=== PATIENT | female | born 2000 | race Caucasian/White ===

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

== ENCOUNTER 2019-07-30 06:51 | Inpatient (IN) | payer OTHER ==
[2019-07-30] MEDS ORDERED: OXYTOCIN/NORMAL SALINE 20 UNIT/1,000 ML RTUINJ IV PRN ×2 (07:14→16:51)
[2019-07-30] MEDS ORDERED: RINGERS SOLUTION,LACTATED 300 ML IV ONE (07:14)
[2019-07-30] MEDS ORDERED: RINGERS SOLUTION,LACTATED 1,000 ML IV PRN (07:14)
[2019-07-30] MEDS ORDERED: OXYTOCIN/NORMAL SALINE 20 UNIT/1,000 ML RTUINJ ONE ×2 (07:23→17:37)
[2019-07-30] MEDS ORDERED: MISOPROSTOL 0.2 MG TABLET ONE (07:23)
[2019-07-30] MEDS ORDERED: LIDOCAINE 1% INJ-PF (10 MG/ML) 30 ML SDV ONE (07:23)
[2019-07-30] MEDS ORDERED: OXYTOCIN 10 UNIT/ML VIAL ONE (07:23)
[2019-07-30 07:42] LABS: APPEARANCE,URINE CLOUDY; BILIRUBIN,URINE NEGATIVE (NEGATIVE); COLOR,URINE YELLOW; GLUCOSE, URINE NEGATIVE (NEGATIVE); KETONES,URINE NEGATIVE (NEGATIVE); LEUKOCYTE ESTERASE,URINE LARGE (NEGATIVE); NITRITE,URINE NEGATIVE (NEGATIVE); PROTEIN,URINE 30 mg/dL (NEGATIVE); URINE SPECIFIC GRAVITY 1.026; UROBILINOGEN,URINE NEGATIVE mg/dL (<2.0)
[2019-07-30 08:02] LABS: URINE AMPHETAMINES SCREEN NEGATIVE; URINE BARBITURATES SCREEN NEGATIVE; URINE BENZODIAZEPINES SCREEN NEGATIVE; URINE COCAINE SCREEN NEGATIVE; URINE MARIJUANA (THC) SCREEN NEGATIVE; URINE METHADONE SCREEN NEGATIVE; URINE PHENCYCLIDINE SCREEN NEGATIVE
[2019-07-30 08:26] LABS: ABSOLUTE EOSINOPHILS # (AUTO) 0.1 10^3/uL (0.0-0.6); ABSOLUTE LYMPHOCYTES (AUTO) 1.7 10^3/uL (0.5-4.7); ABSOLUTE MONOCYTES (AUTO) 0.6 10^3/uL (0.1-1.4); ABSOLUTE NEUT (AUTO) 6.9 10^3/uL (1.7-8.2); BASOPHILS % (AUTO) 0.4 % (0-2); HEMATOCRIT 34.1 % (36.0-47.0); HEMOGLOBIN 11.9 g/dL (12.0-15.5); LYMPHOCYTES % (AUTO) 18.1 % (13-45); MEAN CORPUSCULAR HEMOGLOBIN 27.5 pg (27.0-33.4); MEAN CORPUSCULAR HGB CONC 34.9 g/dL (32.0-36.0); MEAN CORPUSCULAR VOLUME 79 fl (80-97); MONOCYTES % (AUTO) 6.4 % (3-13); PLATELET COUNT 212 10^3/uL (150-450); RED BLOOD COUNT 4.33 10^6/uL (3.72-5.28); RED CELL DISTRIBUTION WIDTH 13.1 % (11.5-14.0); SEGMENTED NEUTROPHILS % (AUTO) 74.1 % (42-78); TOTAL CELLS COUNTED % (AUTO) 100 %; WHITE BLOOD COUNT 9.2 10^3/uL (4.0-10.5)
[2019-07-30] MEDS ORDERED: LIDOCAINE 2% INJ (20 MG/ML) 20 ML MDV ONE (08:47)
[2019-07-30] MEDS ORDERED: ONDANSETRON HCL INJ/PF 4 MG/2 ML SDV ONE (09:59)
[2019-07-30] MEDS ORDERED: ONDANSETRON HCL INJ/PF 4 MG/2 ML SDV IV ONE (11:37)
[2019-07-30] MEDS ORDERED: PROMETHAZINE HCL INJ 25 MG/1 ML VIAL IV ONE (11:52)
[2019-07-30] MEDS ORDERED: PROMETHAZINE HCL INJ 25 MG/1 ML VIAL ONE (11:55)
[2019-07-30] MEDS ORDERED: NALBUPHINE HCL INJ 10 MG/1 ML AMPULE ONE (13:06)
[2019-07-30] MEDS ORDERED: NALBUPHINE HCL INJ 10 MG/1 ML AMPULE IV ONE (13:06)
--- NOTE | 2019-07-30 14:49 | Admission Physical ---
Datetime Report Generated by CPN: 07/30/2019 14:49 CURRENT ADMISSION Chief Complaint: Scheduled Induction of Labor Indication for Induction- Other: possible GDM Admit Impression : Term, Intrauterine ; No Active Labor Admit Plan: Initiate Labor Induction Protocol ALLERGIES Medication Allergies: No Medication Allergies: No Known Allergies (06/19/2018) Latex: No Latex Allergies Food Allergies: none Environmental Allergies: none OBSTETRICAL HISTORY EDC: 07/27/2019 00:00 : 1 Para: 0 Term: 0 : 0 SAB: 0 IAB: 0 Ectopic: 0 Livin Cesareans: 0 VBACs: 0 Multiple Births: 0 Gestational Diabetes: No Rh Sensitization: No Incompetent Cervix: No BERE: No Infertility: No ART Treatment: No Uterine Anomaly: No IUGR: No Hx Previous C/S: No Macrosomia: No Hx Loss/Stillborn: No PIH: No Hx : No Placenta Previa/Abruption: No Depression/PP Depression: No PTL/PROM: No Post Hemorrhage: No Current Procedures: Ultrasound; NST Obstetrical History Comments: G1: current SEE RECORDS Alcohol: No Marijuana : No Cocaine: No Other Illicit Drugs: No Cigarettes: Never Smoker. [id number] MEDICAL HISTORY Diabetes: No Blood Transfusion: No Pulmonary Disease (Asthma, TB): No Breast Disease: No Hypertension: No Dental Scheduler Surgery: No Heart Disease: No Hosp/Surgery: Yes Autoimmune Disorder: No Anesthetic Complications: No Kidney Disease: No Abnormal Pap Smear: No Neuro/Epilepsy: No Psychiatric Disorders: No Other Medical Diseases: No Hepatitis/Liver Disease: No Significant Family History: No Varicosities/Phlebitis: No Trauma/Violence : No Thyroid Dysfunction: No Medical History Comments: tonsilectomy 2016 INFECTIOUS HISTORY Gonorrhea: No Genital Herpes: No Chlamydia: No Tuberculosis: No Syphilis: No Hepatitis: No HIV/AIDS Exposure: No Rash or Viral Illness: No HPV: No PHYSICAL EXAM General: Normal HEENT: Normal Neurologic: Normal Thyroid: Deferred Heart: Normal Lungs: Normal Breast: Deferred Back: Normal Abdomen: Normal Genitourinary Exam: Normal Extremities: Normal DTRs: Deferred Pelvic Type: Adequate Vital Signs: Reviewed; Within Normal Limits VAGINAL EXAM Dilatation: 3 Effacement: 80 Station: -1 Contraction Comments: rare MEMBRANES Membranes: Intact FETUS A EGA: 40.3 Monitoring: External US FHR- Baseline: 120 Variability: Moderate 6-25bpm Decelerations: None FHR Category: Category I Estimated Weight (gm): 3300 Presentation: Vertex Admit Comment: at 40 weeks, failed 1h gtt (161), vomited 3h gtt twice has been monitoring bs-possible GDM. here for IOL. P: pitocin IOL, anticipate PLANS FOR LABOR AND DELIVERY Other Pain Management Plans: undecided at this time Feeding Preference: Breast Benefit of Breast Feed Discussed: Yes Circumcision: N/A INFORMED CONSENT Assignment: Sharri Akers MD Signature: with User ID: [email or web address] : with User ID: [email or web address]
[2019-07-30] MEDS ORDERED: FENTANYL/BUPIVACAINE/NS/PF 300 MCG/150 ML RTUINJ EPI ONE (15:13)
[2019-07-30] MEDS ORDERED: DIBUCAINE 1% OINTMENT 56 GM TP PRN (16:51)
[2019-07-30] MEDS ORDERED: PROMETHAZINE HCL INJ 25 MG/1 ML VIAL IV PRN (16:51)
[2019-07-30] MEDS ORDERED: MEASLES,MUMPS&RUBELLA VACC/PF 0.5 ML VIAL SUBCUT PRN (16:51)
[2019-07-30] MEDS ORDERED: PROMETHAZINE HCL 25 MG TABLET PO PRN (16:51)
[2019-07-30] MEDS ORDERED: ACETAMINOPHEN WITH CODEINE #3 TABLET PO PRN ×2 (16:51)
[2019-07-30] MEDS ORDERED: DIPHENHYDRAMINE HCL 25 MG CAPSULE PO PRN (16:51)
[2019-07-30] MEDS ORDERED: GLYCERIN/WITCH HAZEL LEAF 1 EACH MED..WIPE TP PRN (16:51)
[2019-07-30] MEDS ORDERED: PSEUDOEPHEDRINE HCL 30 MG TABLET PO PRN (16:51)
[2019-07-30] MEDS ORDERED: PROMETHAZINE HCL 25 MG SUPP.RECT PR PRN (16:51)
[2019-07-30] MEDS ORDERED: BENZOCAINE/MENTHOL AEROSOL SPRAY 56 ML TOP PRN (16:51)
[2019-07-30] MEDS ORDERED: NA PHOS,M-B/NA PHOS,DI-BA (ADULT) 133 ML ENEMA PR PRN (16:51)
[2019-07-30] MEDS ORDERED: ZOLPIDEM TARTRATE 5 MG TABLET PO PRN (16:51)
[2019-07-30] MEDS ORDERED: DIPH/PERTUSS(ACELL)/TETANUS VAC/PF 0.5 ML SYR (>=10YO) IM PRN (16:51)
[2019-07-30] MEDS ORDERED: MAGNESIUM HYDROXIDE SUSP 30 ML UDCUP PO PRN (16:51)
[2019-07-30] MEDS ORDERED: IBUPROFEN 800 MG TABLET PO SCH (18:00)
--- NOTE | 2019-07-30 18:46 | Delivery Summary ---
Del Sum A-C Datetime Report Generated by CPN: 07/30/2019 18:46 DELIVERY PERSONNEL DELIVERY PERSONNEL: [id number] Delivery Doctor:: Lesvia Ahumada CNM Nursery Nurse:: Nina Mortensen RN Buttonhole Marker/[employer]ILERMAKER [employer]SEM[employer]Y AND ERECTION: Eleni West, AGENCY SALES DEVELOPMENT ASSOCIATE MATERNAL INFORMATION Delivery Anesthesia: Local Medications During Delivery: Lidocaine 1% vaginal Medications After Delivery: Pitocin Drip 20 Units/1000ml NSS Estimated Blood Loss (ml): 150 Maternal Complications: None Provider Comments: SHEBA VIABLE FEMALE WITH SPONTANEOUS CRY. RIGHT NUCHAL HAND NOTED. CORD DOUBLE CLAMPED AND CUT. SPONTANEOUS INTACT PLACENTA WITH 3VC. MOTHER AND INFANT STABLE IN L_D #3. LABOR SUMMARY EDC: 07/27/2019 00:00 No. Babies in Womb: 1 Attempted: No Labor Anesthesia: IV Sedation LABOR INFORMATION Reason for Induction: Other Reason for Induction- Other: Elective Onset of Labor: 07/30/2019 09:41 Complete Dilatation: 07/30/2019 15:45 Oxytocin: Induction Group B Beta Strep: negative Antibiotics # of Doses: 0 Steroids Given: None Reason Steroids Not Administered: Not Applicable MEMBRANES Membranes Rupture Method: Spontaneous Rupture of Membranes: 07/30/2019 10:15 Length of Rupture (hr): 6.12 Amniotic Fluid Color: Clear Amniotic Fluid Amount: Small Amniotic Fluid Odor: None STAGES OF LABOR Stage 1 hr: 6 Stage 1 min: 4 Stage 2 hr: 0 Stage 2 min: 37 Stage 3 hr: 0 Stage 3 min: 5 Total Time in Labor hr: 6 Total Time in Labor min: 46 VAGINAL DELIVERY Episiotomy: None Laceration #1: None Laceration Extension #1: N/A Laceration Repair: Not Applicable Sponge Count Correct: N/A BABY A INFORMATION Delivery Date/Time: 07/30/2019 16:22 Method of Delivery: Vaginal Born in Route : No : N/A Forceps: N/A Vacuum Extraction: N/A PRESENTATION/POSITION BABY A Presentation: Cephalic Cephalic Presentation: Vertex Vertex Position: Right Occipital Anterior Breech Presentation: N/A PLACENTA INFORMATION BABY A Placenta Delivery Time : 07/30/2019 16:27 Placenta Method of Delivery: Spontaneous Placenta Status: Delivered SCORES BABY A Heart Rate 1 min: >100 bpm Resp Effort 1 min: Slow, Irregular Reflex Irritability 1 min: Cough or Sneeze or Pulls Away Muscle Tone 1 min: Some Flexion of Extremities Color 1 min: Body [place], Extremities Blue Resuscitation Effort 1 min: Tactile Stimulation SCORE 1 MIN: 7 Heart Rate 5 min: >100 bpm Resp Effort 5 min: [place] Reflex Irritability 5 min: Cough or Sneeze or Pulls Away Muscle Tone 5 min: Active Motion Color 5 min: Body [place], Extremities Blue Resuscitation Effort 5 min: Tactile Stimulation SCORE 5 MIN: 9 INFANT INFORMATION BABY A Gestational Age at Delivery: 40.3 Gestational Status: Full Term- 39- 40.6 Weeks Infant Outcome : Liveborn Infant Condition : Stable Sex: Female IDENTIFICATION BABY A Infant Verification Date/Time: 07/30/2019 16:22 ID Band Number: [id number] Mother's Name Verified: Yes RN Verifying Infant: Michelle Paul RN Additional Verifying Personnel: M. Coronado, RN WEIGHT/LENGTH BABY A Birthweight (gm): 3550 Infant Weight (lb): 7 Infant Weight (oz): 13 Infant Length (in): 20.00 Length (cm): 50.80 CORD INFORMATION BABY A No. Cord Vessels: 3 Nuchal Cord : N/A Nuchal Cord- Other: right nuchal hand Cord pH Baby Arterial: right nuchal hand Cord Blood Taken: Yes-For Storage (Mom's Blood type +) Suction: None ASSESSMENT BABY A Infant Complications: Other Infant Complications- Other: right nuchal cord Skin to Skin: Yes SIGNATURES Assignment: Sharri Akers MD Signature: with User ID: [email or web address] : with User ID: [email or web address] : I was personally available for consultation and serving as supervising physician for the P.
[2019-07-30] MEDS: FAMOTIDINE 20 MG TABLET PO SCH (21:20)
[2019-07-30] MEDS: IBUPROFEN 800 MG TABLET PO SCH (21:20)
[2019-07-31] MEDS: IBUPROFEN 800 MG TABLET PO SCH ×3 (06:45→21:57)
[2019-07-31 06:55] LABS: HEMATOCRIT 28.5 % (36.0-47.0); HEMOGLOBIN 9.9 g/dL (12.0-15.5); MEAN CORPUSCULAR HEMOGLOBIN 27.7 pg (27.0-33.4); MEAN CORPUSCULAR HGB CONC 34.6 g/dL (32.0-36.0); MEAN CORPUSCULAR VOLUME 80 fl (80-97); PLATELET COUNT 199 10^3/uL (150-450); RED BLOOD COUNT 3.56 10^6/uL (3.72-5.28); RED CELL DISTRIBUTION WIDTH 13.3 % (11.5-14.0); WHITE BLOOD COUNT 14.3 10^3/uL (4.0-10.5)
[2019-07-31] MEDS: DOCUSATE SODIUM 100 MG CAPSULE PO SCH ×3 (08:42→18:34)
[2019-07-31] MEDS: FERROUS SULFATE 325 MG TABLET PO SCH ×3 (08:42→18:34)
[2019-07-31] MEDS: PRENATAL VITAMIN W DHA CAPSULE PO SCH (11:02)
[2019-07-31] MEDS: SENNOSIDES/DOCUSATE 8.6-50 MG 1 EACH TABLET PO SCH (11:02)
--- NOTE | 2019-07-31 11:13 | PDOC PROGRESS REPORT ---
Subjective-OB Progress Note for:: 07/31/19 Subjective: 18yo G1 now P1 s/p ppd1. Pt. ambulating, voiding and without difficulty. Pain well controlled by medication,bonding well with baby. No concerns today Physical Exam (OB) Vital Signs: Temp Pulse Resp BP Pulse Ox 97.9 F 85 14 125/65 99 07/31/19 07:45 07/31/19 07:45 07/31/19 07:45 07/31/19 07:45 07/31/19 07:45 Intake & Output 07/30/19 07/31/19 08/01/19 06:59 06:59 06:59 Weight 108.8 kg - General General Appearance: Appears well In distress: None - PIH/Pre-Eclampsia Headache: Absent Epigastric Pain: No Visual Changes: No - Episiotomy/Laceration Site Condition: N/A - Lochia Lochia Amount: Small 10-25 ml Lochia Color: Rubra/Red - Abdomen Description: Soft, Round Fundal Description: Firm, Midline Fundal Height: u/u - u/2 - Respiratory Respiratory Status: No respiratory distress - Extremities Upper extremity: Normal inspection Lower extremities: Normal inspection - Neurological Cognition: Normal Orientation: AAOx4 - Psychological Associated symptoms: Normal affect, Normal mood Objective-Diagnostic Laboratory: 07/31/19 06:15 07/31/19 06:15 WBC 14.3 H RBC 3.56 L Hgb 9.9 L Hct 28.5 L MCV 80 MCH 27.7 MCHC 34.6 RDW 13.3 Plt Count 199 Assessment and Plan(PN) - Assessment and Plan (1) Encounter for induction of labor Is this a current diagnosis for this admission?: Yes Plan: delivered (2) Acute blood loss anemia Is this a current diagnosis for this admission?: Yes Plan: increase dietary iron and FeSO4 BID fasting glucose at pp visit (3) Gestational diabetes mellitus (GDM) affecting first Is this a current diagnosis for this admission?: Yes Plan: fasting glucose at pp visit (4) Delivery normal Is this a current diagnosis for this admission?: Yes Plan: routine pp care - Time Spent with Patient Time with patient: Less than 15 minutes Medications reviewed and adjusted accordingly: Yes - Disposition Anticipated Discharge: Home Within: within 24 hours
[2019-07-31] MEDS: FAMOTIDINE 20 MG TABLET PO SCH ×2 (15:12→21:52)
[2019-08-01] MEDS: IBUPROFEN 800 MG TABLET PO SCH ×2 (06:04→13:34)
--- NOTE | 2019-08-01 09:37 | PDOC PROGRESS REPORT ---
Subjective-OB Progress Note for:: 08/01/19 Subjective: Ready to go home. Physical Exam (OB) Vital Signs: Temp Pulse Resp BP Pulse Ox 97.8 F 74 16 122/62 100 08/01/19 07:34 08/01/19 07:34 08/01/19 07:34 08/01/19 07:34 08/01/19 07:34 Intake & Output 07/31/19 08/01/19 08/02/19 06:59 06:59 06:59 Weight 108.8 kg - PIH/Pre-Eclampsia Clonus: Negative Headache: Absent Epigastric Pain: No Visual Changes: No - Lochia Lochia Amount: Scant < 10 ml Lochia Color: Rubra/Red - Abdomen Description: Soft Hernia Present: No Bowel Sounds: Normoactive Flatus Presence: Present Stool: No Fundal Description: Firm Fundal Height: u/u - u/2 Objective-Diagnostic Laboratory: 07/31/19 06:15 Assessment and Plan(PN) - Time Spent with Patient Medications reviewed and adjusted accordingly: Yes - Disposition Anticipated Discharge: Home
--- NOTE | 2019-08-01 09:45 | PDOC DISCHARGE SUMMARY ---
Impression - Admit/DC Date/PCP Admission Date/Primary Care Provider: 07/30/19 06:51 DAX MCCOY MD Discharge Date: 08/01/19 - Discharge Diagnosis (1) Acute blood loss anemia Is this a current diagnosis for this admission?: Yes (2) Delivery normal Is this a current diagnosis for this admission?: Yes (3) Encounter for induction of labor Is this a current diagnosis for this admission?: Yes (4) Gestational diabetes mellitus (GDM) affecting first Is this a current diagnosis for this admission?: Yes - Additional Information Resuscitation Status: Full Code Discharge Diet: Regular Discharge Activity: Activity As Tolerated, Balance Activity w/Rest, Pelvic Rest, Slowly Increase Activity, No tub bath Referrals: DAX MCCOY MD [Primary Care Provider] - Prescriptions: Ferrous Sulfate [Feosol 325 mg Tablet] 325 mg PO BID #60 tablet Home Medications: Vits96/Iron Fum/Folic [ Tablet] 1 tab PO DAILY 07/30/19 Ferrous Sulfate [Feosol 325 mg Tablet] 325 mg PO BID #60 tablet 08/01/19 HPI Gestational Age: 40.3 wks Reason(s) for Admission: Induction of Labor, Gestional Diabetes Procedures: Ultrasound Intrapartum Procedure(s): Spontaneous Vaginal Delivery Results Laboratory Results: WBC 14.3 10^3/uL (4.0-10.5) H 07/31/19 06:15 RBC 3.56 10^6/uL (3.72-5.28) L 07/31/19 06:15 Hgb 9.9 g/dL (12.0-15.5) L 07/31/19 06:15 Hct 28.5 % (36.0-47.0) L 07/31/19 06:15 MCV 80 fl (80-97) 07/31/19 06:15 MCH 27.7 pg (27.0-33.4) 07/31/19 06:15 MCHC 34.6 g/dL (32.0-36.0) 07/31/19 06:15 RDW 13.3 % (11.5-14.0) 07/31/19 06:15 Plt Count 199 10^3/uL (150-450) 07/31/19 06:15 Lymph % (Auto) 18.1 % (13-45) 07/30/19 07:45 [place] % (Auto) 6.4 % (3-13) 07/30/19 07:45 Eos % (Auto) 1.0 % (0-6) 07/30/19 07:45 Baso % (Auto) 0.4 % (0-2) 07/30/19 07:45 Absolute Neuts (auto) 6.9 10^3/uL (1.7-8.2) 07/30/19 07:45 Absolute Lymphs (auto) 1.7 10^3/uL (0.5-4.7) 07/30/19 07:45 Absolute Monos (auto) 0.6 10^3/uL (0.1-1.4) 07/30/19 07:45 Absolute Eos (auto) 0.1 10^3/uL (0.0-0.6) 07/30/19 07:45 Absolute Basos (auto) 0.0 10^3/uL (0.0-0.2) 07/30/19 07:45 Seg Neutrophils % 74.1 % (42-78) 07/30/19 07:45 Urine Color YELLOW 07/30/19 07:01 Urine Appearance CLOUDY 07/30/19 07:01 Urine pH 6.0 (5.0-9.0) 07/30/19 07:01 Ur Specific [place] 1.026 07/30/19 07:01 Urine Protein 30 mg/dL (NEGATIVE) H 07/30/19 07:01 Urine Glucose (UA) NEGATIVE mg/dL (NEGATIVE) 07/30/19 07:01 Urine Ketones NEGATIVE mg/dL (NEGATIVE) 07/30/19 07:01 Urine Blood NEGATIVE (NEGATIVE) 07/30/19 07:01 Urine Nitrite NEGATIVE (NEGATIVE) 07/30/19 07:01 Urine Bilirubin NEGATIVE (NEGATIVE) 07/30/19 07:01 Urine Urobilinogen NEGATIVE mg/dL (<2.0) 07/30/19 07:01 Ur Leukocyte Esterase LARGE (NEGATIVE) H 07/30/19 07:01 Urine Ascorbic Acid NEGATIVE (NEGATIVE) 07/30/19 07:01 Urine Opiates Screen NEGATIVE 07/30/19 07:01 Urine Methadone Screen NEGATIVE 07/30/19 07:01 Ur Barbiturates Screen NEGATIVE 07/30/19 07:01 Ur Phencyclidine Scrn NEGATIVE 07/30/19 07:01 Ur Amphetamines Screen NEGATIVE 07/30/19 07:01 U Benzodiazepines Scrn NEGATIVE 07/30/19 07:01 Urine Cocaine Screen NEGATIVE 07/30/19 07:01 U Marijuana (THC) Screen NEGATIVE 07/30/19 07:01 RPR NONREACTIVE (NONREACTIVE) 07/30/19 07:45 Blood Type B POSITIVE 07/30/19 07:45 Antibody Screen NEGATIVE 07/30/19 07:45 Plan Plan of Treatment: Follow up at [facility] in 4 wks. Pelvic rest x4-6 wks. Time Spent: Less than 30 Minutes
[2019-08-01] MEDS: DOCUSATE SODIUM 100 MG CAPSULE PO SCH (10:25)
[2019-08-01] MEDS: PRENATAL VITAMIN W DHA CAPSULE PO SCH (10:25)
[2019-08-01] MEDS: SENNOSIDES/DOCUSATE 8.6-50 MG 1 EACH TABLET PO SCH (10:25)
[2019-08-01] MEDS: FAMOTIDINE 20 MG TABLET PO SCH (10:25)
[2019-08-01] MEDS: FERROUS SULFATE 325 MG TABLET PO SCH (10:25)
[2019-08-01 11:40] VITALS: BP 130/59
== END 2019-08-01 14:05 | disposition home or self-care (01) | DRG 806 ==
LOC: LR 06:51 → 2S 18:37
PROVIDERS: ADMIT Obstetrics & Gynecology; ATTEND Obstetrics & Gynecology
PROC: 10E0XZZ Delivery of Products of Conception, External Approach (ICD-10-PCS; principal; 2019-07-30)
DX: O24.429 Gestational diabetes mellitus in childbirth, unspecified control (principal); D62 Acute posthemorrhagic anemia; Z37.0 Single live birth; Z3A.40 40 weeks gestation of pregnancy; O69.2XX0 Labor and delivery complicated by other cord entanglement, with compression, not applicable or unspecified; O99.02 Anemia complicating childbirth
CPT/HCPCS: 36415; 80307; 81005; 85025; 85027; 86592; 86850; 86900; 86901; J2300; J2405; J2550; J2590; J3010; J3490

== ENCOUNTER 2020-08-05 03:41 | Emergency (ER) | payer OTHER ==
[2020-08-05] MEDS ORDERED: ONDANSETRON HCL INJ/PF 4 MG/2 ML SDV IV ONE (04:43)
[2020-08-05] MEDS ORDERED: MORPHINE SULFATE 10 MG/ML INJ IV ONE (05:02)
--- NOTE | 2020-08-05 05:07 | ER Document Report ---
ED GI/ - General Chief Complaint: Flank Pain Stated Complaint: FLANK PAIN Time Seen by Provider: 08/05/20 04:47 Notes: CHIEF COMPLAINT: Intermittent right flank pain for 7 months HPI: 19-year-old obese female presenting to the emergency department complaining of intermittent right back, right flank and abdominal pain over the last 7 months. Patient states it has been more persistent episodes over the last 2 days. She has had nausea and vomiting with this. No fevers. No lower abdominal pain. No dysuria. ROS: See HPI - all other systems were reviewed and are otherwise negative Constitutional: no fever Eyes: no drainage, no blurred vision ENT: no runny nose, no sore throat Cardiovascular: no chest pain Resp: no SOB, no cough GI: Positive vomiting, no diarrhea, positive abdominal pain : no dysuria Integumentary: no rash Allergy: no hives Musculoskeletal: no extremity pain or swelling Neurological: no numbness/tingling, no weakness MEDICATIONS: I agree with the patient medications as charted by the RN. ALLERGIES: I agree with the allergies as charted by the RN. PAST MEDICAL HISTORY/PAST SURGICAL HISTORY: Reviewed and agree as charted by RN. SOCIAL HISTORY: Reviewed and agree as charted by RN. FAMILY HISTORY: No significant familial comorbid conditions directly related to patient complaint EXAM: Reviewed vital signs as charted by RN. CONSTITUTIONAL: Alert and oriented and responds appropriately to questions. Well-appearing; well-nourished HEAD: Normocephalic; atraumatic EYES: PERRL; Conjunctivae clear, sclerae non-icteric ENT: normal nose; no rhinorrhea; moist mucous membranes; pharynx without lesions noted, no uvula edema or deviation, no tonsillar hypertrophy, phonation normal NECK: Supple without meningismus; non-tender; no cervical lymphadenopathy, no masses CARD: RRR; no murmurs, no clicks, no rubs, no gallops; symmetric distal pulses RESP: Normal chest excursion without splinting or tachypnea; breath sounds clear and equal bilaterally; no wheezes, no rhonchi, no rales, pulse oximetry 90% on room air not hypoxic ABD/GI: Obese, normal bowel sounds; non-distended; soft, mild tenderness through the epigastric, right lateral abdomen on palpation. No tenderness in the right lower quadrant on palpation, no rebound, no guarding; no palpable organomegaly or masses. BACK: The back appears normal and is non-tender to palpation, there is no CVA tenderness EXT: Normal ROM in all joints; non-tender to palpation; no cyanosis, no effusions, no edema SKIN: Normal color for age and race; warm; dry; good turgor; no acute lesions noted NEURO: Moves all extremities equally; Motor and sensory function intact PSYCH: The patient's mood and manner are appropriate. Grooming and personal hygiene are appropriate. MDM: 19-year-old female presenting with intermittent pain in the right upper qu adrant and right back region. Palpation of the right upper quadrant causes pain in the right thoracic back. Was apparently seen at an outside emergency department 3 weeks ago states they did a CAT scan and told her there were no abnormalities the told her she continue with the pain she should have an ultrasound of the right upper quadrant. She has not followed up with a primary care provider or director of entertainment in the 7 months of onset of her discomfort. Given the length of time of her symptoms it is unlikely this is appendicitis TRAVEL OUTSIDE OF THE [place] IN LAST 30 DAYS: No - Related Data Allergies/Adverse Reactions: No Known Allergies Allergy (Verified 08/05/20 03:47) Past Medical History - Social History Smoking Status: Never Smoker Frequency of alcohol use: None Drug Abuse: None Family History: Reviewed & Not Pertinent Renal/ Medical History: Denies: Hx Peritoneal Dialysis Past Surgical History: Reports: Hx Tonsillectomy Physical Exam - Vital signs Vitals: Temp Pulse Resp BP Pulse Ox 98.2 F 102 H 16 141/87 H 100 08/05/20 03:46 08/05/20 03:46 08/05/20 03:46 08/05/20 03:46 08/05/20 03:46 Course - Re-evaluation Re-evalutation: 08/05/20 05:45 Patient is noted to have a urinary tract infection awaiting ultrasound we will give Rocephin 08/05/20 06:35 Patient is noted to have cholelithiasis and UTI. Lab work does not show other acute abnormalities. Will place on pain medication, Keflex, follow-up surgery clinic - Vital Signs Vital signs: Temp Pulse Resp BP Pulse Ox 98.2 F 102 H 16 126/49 H 100 08/05/20 03:46 08/05/20 03:46 08/05/20 03:46 08/05/20 06:15 08/05/20 03:46 - Laboratory Result Diagrams: 08/05/20 04:38 08/05/20 04:38 Laboratory results interpreted by me: 08/05/20 08/05/20 04:38 05:20 Chloride 108 H Urine Protein 30 H Ur Leukocyte Esterase LARGE H Discharge - Discharge Clinical Impression: Cholelithiasis Qualifiers: Cholelithiasis location: gallbladder Cholecystitis presence: without cholecystitis Biliary obstruction: without biliary obstruction Qualified Code(s): K80.20 - Calculus of gallbladder without cholecystitis without obstruction UTI (urinary tract infection) Qualifiers: Urinary tract infection type: acute cystitis Hematuria presence: without hematuria Qualified Code(s): N30.00 - Acute cystitis without hematuria Condition: Stable Disposition: HOME, SELF-CARE Additional Instructions: Take the pain medication as prescribed do not drive if taking narcotics for pain. Take the Keflex to treat the urinary infection. Follow-up with the surgery clinic by phone today to schedule further follow-up and evaluation of the gallstones that were noted on your ultrasound. If you have unrelenting or uncontrollable pain at home return for reevaluation. Avoid any greasy spicy or fatty foods Prescriptions: Cephalexin Monohydrate [Keflex 500 mg Capsule] 500 mg PO Q6H 7 Days #28 capsule Oxycodone HCl/Acetaminophen [Percocet 5-325 mg Tablet] 1 tab PO Q4H PRN #15 tab PRN Reason: Referrals: JOCELYN CHU MD [ACTIVE STAFF] - Follow up as needed
[2020-08-05 05:22] LABS: ABSOLUTE BASOPHILS # (AUTO) 0.1 10^3/uL (0.0-0.2); ABSOLUTE EOSINOPHILS # (AUTO) 0.1 10^3/uL (0.0-0.6); ABSOLUTE MONOCYTES (AUTO) 0.6 10^3/uL (0.1-1.4); ABSOLUTE NEUT (AUTO) 5.9 10^3/uL (1.7-8.2); BASOPHILS % (AUTO) 0.6 % (0-2); EOSINOPHILS % (AUTO) 1.2 % (0-6); HEMATOCRIT 40.4 % (36.0-47.0); HEMOGLOBIN 14.1 g/dL (12.0-15.5); LYMPHOCYTES % (AUTO) 23.3 % (13-45); MEAN CORPUSCULAR HEMOGLOBIN 28.3 pg (27.0-33.4); MEAN CORPUSCULAR HGB CONC 34.8 g/dL (32.0-36.0); MEAN CORPUSCULAR VOLUME 81 fl (80-97); PLATELET COUNT 317 10^3/uL (150-450); RED BLOOD COUNT 4.98 10^6/uL (3.72-5.28); RED CELL DISTRIBUTION WIDTH 12.2 % (11.5-14.0); SEGMENTED NEUTROPHILS % (AUTO) 67.9 % (42-78); TOTAL CELLS COUNTED % (AUTO) 100 %; WHITE BLOOD COUNT 8.6 10^3/uL (4.0-10.5)
[2020-08-05 05:39] LABS: APPEARANCE,URINE CLOUDY; BILIRUBIN,URINE NEGATIVE (NEGATIVE); COLOR,URINE YELLOW; GLUCOSE, URINE NEGATIVE (NEGATIVE); KETONES,URINE NEGATIVE (NEGATIVE); LEUKOCYTE ESTERASE,URINE LARGE (NEGATIVE); NITRITE,URINE NEGATIVE (NEGATIVE); PROTEIN,URINE 30 mg/dL (NEGATIVE); URINE SPECIFIC GRAVITY 1.028; UROBILINOGEN,URINE NEGATIVE mg/dL (<2.0)
[2020-08-05 05:42] LABS: ALBUMIN 4.2 g/dL (3.5-5.0); ALKALINE PHOSPHATASE 87 U/L (38-126); ANION GAP 11 (5-19); ASPARTATE AMINO TRANSFERASE 19 U/L (14-36); BILIRUBIN,DIRECT 0.1 mg/dL (0.0-0.4); BILIRUBIN,TOTAL 0.5 mg/dL (0.2-1.3); BLOOD UREA NITROGEN 12 mg/dL (7-20); CALCIUM 9.2 mg/dL (8.4-10.2); CARBON DIOXIDE 22 mmol/L (22-30); CHLORIDE 108 mmol/L (98-107); GLUCOSE 100 mg/dL (75-110); POTASSIUM 4.4 mmol/L (3.6-5.0); TOTAL PROTEIN 6.8 g/dL (6.3-8.2)
[2020-08-05] MEDS ORDERED: CEFTRIAXONE 1 GM/D5W RTU 1 GM/50 ML RTUPB IV ONE (05:44)
--- NOTE | 2020-08-05 06:31 | RADIOLOGY REPORT (SQ) ---
Ultrasound of the right upper quadrant of the abdomen: 08/05/2020 5:29 AM SET UP AND CHARGER Technique: Multiple grayscale color Doppler images of the right upper quadrant of the abdomen were obtained. Comparison: CT of abdomen and pelvis from 06/29/2018 History: 19-year old patient with right upper quadrant abdominal pain. Findings: The visualized portions of the hepatic parenchyma appears diffusely echogenic. There is normal directional flow seen within the main portal vein. Cholelithiasis is seen with no evidence of gallbladder wall thickening or pericholecystic fluid. Sonographic Davis's sign was reported to be negative. The common duct measures 3-4 mm. The right kidney measures up to 10.7 cm in length. The right kidney demonstrates normal cortical echogenicity with no evidence to suggest hydronephrosis. The visualized portions of the IVC, abdominal aorta, and pancreatic head appear normal. No free intraperitoneal fluid is seen. Impression: 1. Cholelithiasis is seen. The common duct is within normal limits of size. 2. Hepatic steatosis
[2020-08-05 07:00] VITALS: BP 123/65
== END 2020-08-05 07:01 | disposition home or self-care (01) ==
LOC: ER 03:41
DX: K80.20 Calculus of gallbladder without cholecystitis without obstruction (principal); N30.00 Acute cystitis without hematuria; R10.9 Unspecified abdominal pain; M54.9 Dorsalgia, unspecified; R11.2 Nausea with vomiting, unspecified; R10.11 Right upper quadrant pain; M54.6 Pain in thoracic spine
CPT/HCPCS: 99285; 96375; 96365; 36415; 83690; 84703; 85025; 80053; 81001; 76705; J2270; J2405; J0696